=== PATIENT | female | born 1975 | race Caucasian/White ===

== ENCOUNTER 2022-04-04 20:11 | Emergency (ER) | payer OTHER, SELFPAY ==
[2022-04-04 20:19] VITALS: BP 131/84; PULSE 94; RESP 22; TEMP 37.1; O2SAT 100; BMI 35.9
[2022-04-04 20:30] VITALS: BP 128/78; PULSE 84; RESP 16; O2SAT 100
--- NOTE | 2022-04-04 20:39 | CRLHL7_ITS ---
For Patients: As a result of the Century Cures Act, medical imaging exams and procedure reports are released immediately into your electronic medical record. You may view this report before your referring provider. If you have questions, please contact your health care provider. INDICATION: Status post fall COMPARISON: None available. TECHNIQUE: CT examination of the head was performed with 3 mm thick axial and 2 mm thick coronal and sagittal sections without intravenous contrast. Images were obtained from the vertex of the skull through the skull base, and I examined the images with the brain and bone windows. Please note that all CT scans at this facility use dose modulation, iterative reconstruction, and/or weight-based dosing when appropriate to reduce radiation dose to as low as reasonably achievable. FINDINGS: : The brain is normal in appearance for the patient`s age on today`s study, with no sign of mass lesion, mass effect, hemorrhage, or edema. The ventricles and sulci are normal in appearance for the patient`s age. The visualized portions of the orbits are normal in appearance. The visualized portions of the paranasal sinuses and mastoids are clear. The osseous structures are normal in their appearance with no sign of abnormality in the skull base or calvarium. IMPRESSION: No sign of closed head injury. Normal noncontrast CT of the head for the patient`s age. Please note that all CT scans at this facility use dose modulation, iterative reconstruction, and/or weight-based dosing when appropriate to reduce radiation dose to as low as reasonably achievable. Dictated by Corbin Bashir MD @ 04/04/2022 9:31:15 PM (Electronically Signed)
[2022-04-04] MEDS: 0.9 % SODIUM CHLORIDE 1000 ml 1,000 ML IV (21:27)
[2022-04-04] MEDS: ONDANSETRON 2 MG/ML inj 4 MG IVP (21:28)
[2022-04-04 21:30] VITALS: BP 120/80; PULSE 83; RESP 19; O2SAT 100
[2022-04-04 21:40] LABS: Basophils Absolute Auto 0.03 K/uL (0.00-0.30); Basophils Percent Auto 0.4 % (0.0-3.0); Eosinophils Absolute Auto 0.11 K/uL (0.00-0.50); Eosinophils Percent Auto 1.5 % (0.0-7.0); Hematocrit 30.7 % (33.0-51.0); Hemoglobin* 9.1 gm/dL (12.0-16.0); Immature Granulocytes Abs Auto 0.01 K/uL (0.00-0.30); Lymphocytes Absolute Auto 2.19 K/uL (0.90-2.90); Lymphocytes Percent Auto 29.8 % (20-44); Mean Corpuscular HGB Conc 30 gm/dL (32-36); Mean Corpuscular Hemoglobin 24 pg (26-34); Mean Corpuscular Volume 80 fL (80-100); Monocytes Percent Auto 6.1 % (0.0-11.0); Neutrophils Absolute Auto 4.56 K/uL (1.7-7.0); Neutrophils Percent Auto 62.1 % (42.0-72.0); Platelet Count* 287 K/uL (140-440); RDW Coefficient of Variation % 16.8 % (11.5-15.5); Red Blood Count 3.82 m/uL (4.00-5.20); White Blood Count* 7.35 K/uL (4.50-11.00)
[2022-04-04 21:43] LABS: Slide Review Reflex No
[2022-04-04 21:45] LABS: HCG Qualitative* Negative (Negative)
[2022-04-04 21:54] LABS: Albumin* 4.1 g/dL (3.3-5.0)
[2022-04-04 21:55] LABS: Chloride* 106 mmol/L (96-114); Mono Screen* Negative (Negative); Potassium* 3.8 mmol/L (3.6-5.1); Sodium* 139 mmol/L (135-149)
[2022-04-04 21:56] LABS: Appearance Urine Clear (Clear); Bilirubin Urine Negative (Negative); Blood Urine Negative (Negative); Color Urine Yellow (Yellow); Glucose Urine Negative (Negative); Ketones Urine Negative (Negative); Leukocyte Esterase Urine Negative (Negative); Nitrite Urine Negative (Negative); Protein Urine Negative (Negative); Urobilinogen Urine 0.2 (0.2-1.0)
[2022-04-04 21:57] LABS: Alanine Aminotransferase* 19 U/L (4-35); Alkaline Phosphatase* 80 U/L (40-150); Aspartate Amino Transferase* 24 U/L (12-35); Bilirubin Direct* 0.1 mg/dL (0.0-0.5); Bilirubin Total* 0.1 mg/dL (0.1-1.5); Creatinine* 0.6 mg/dL (0.5-1.5); Estimated Glomerular Filt Rate 111 ml/min; Total Protein* 7.1 g/dL (6.0-8.3)
[2022-04-04 21:58] LABS: Blood Urea Nitrogen* 12 mg/dL (5-24); Carbon Dioxide* 27 mmol/L (20-32); Glucose* 104 mg/dL (60-115)
[2022-04-04 21:59] LABS: Calcium* 8.5 mg/dL (8.4-10.6)
[2022-04-04 22:00] VITALS: BP 131/80; PULSE 85; RESP 15; O2SAT 100
[2022-04-04 22:06] LABS: RBC Urine 0-2 (0-2); WBC Urine 0-2 (0-5)
[2022-04-04 22:06] LABS: C Reactive Protein* < 0.5 mg/dL (0.5-1.0)
--- NOTE | 2022-04-04 22:10 | ED_ITS ---
HPI - General Adult General Chief complaint: Nausea/Vomiting Stated complaint: Pain at the base of neck, prev stroke history Time Seen by Provider: 04/04/22 20:31 Source: patient Mode of arrival: ambulatory Limitations: no limitations History of Present Illness HPI narrative: Patient is a 47-year-old female coming in today concerned about possibility of a stroke. Patient states that about a year or so ago she had a hemorrhagic stroke that was unprovoked. Symptoms began with a severe headache, ear fullness, overall weakness and generally not feeling well. She states that she all of a sudden felt all of these things today except for the severe headache. She does complain however of pressure in the back of her head. She states that the biggest issue is that symptoms came on all of a sudden with again the fullness in her ears generally not feeling good from head to toe, feeling weak and tired. On the way here she started having some chills. She states that the fullness in her ears has mostly resolved and that her chills are gone also now that she is under a blanket. She denies blurry vision, dizziness, vertiginous symptoms, changes in her hearing, ringing in her ears. She denies vomiting although she does state that she feels somewhat nauseated. She denies chest pain or abdominal discomfort. No neurologic deficits. No loss of balance. Related Data Home Medications Medication Instructions Recorded Confirmed No Known Home Medications 04/04/22 04/04/22 Allergies Allergy/AdvReac Type Severity Reaction Status Date / Time Sulfa (Sulfonamide Allergy Mild Hives Verified 04/04/22 20:24 Antibiotics) Review of Systems Status of ROS: Reports: 10 or more systems reviewed and unremarkable except as noted in History and below [facility] Social History Smoking Status: Never smoker Do you use any of these nicotine containing products: None Second hand tobacco smoke exposure: No How often do you have a drink containing alcohol: never AUDIT-C Alcohol total score: 0 Non-prescribed substance use: denies use Exam Narrative: Exam Narrative: Well-nourished well-developed patient in no acute distress. Alert and oriented. Answers questions appropriately. Mood and affect are appropriate. Thoughts are goal oriented and rational. No tangential or magical thinking noted. Patient speaks in full sentences without needing to catch their breath. HEENT: Normocephalic atraumatic. Pupils are equally round reactive to light. Extraocular muscles are intact. Conjunctivae are moist without any icterus noted. Moist mucous membranes. Posterior pharynx is normal. Neck is soft without any lymphadenopathy or thyromegaly. No masses are appreciated. TMs are clear bilaterally. Cardiovascular: Heart is regular rate and rhythm S1 and S2 are present without any murmurs. Lungs: Clear to auscultation bilaterally no wheezes rhonchi or rales are appreciated. Patient takes deep breaths without any discomfort. Abdomen: Soft and nontender nondistended with normal bowel sounds. No guarding or rebound. No masses or organomegaly appreciated. Extremities: Bilateral lower extremities are without edema. Normal DP and PT pulses. Skin: Well perfused without any obvious rashes. Strength is 5/5 of the upper and lower extremities. Reflexes are 2+ and symmetric at the knees. Cranial nerves 3-12 are normal. [id number] is normal. There is no nystagmus either horizontally or vertically. Gait is normal. Const: Vital Signs, click to edit/add: Vital Signs - 24 hr 04/04/22 20:19 04/04/22 20:30 Temperature 98.7 F Pulse Rate [Right Pulse Oximeter] 94 84 Respiratory Rate 22 16 Blood Pressure [Le ft Upper Arm] 131/84 128/78 Pulse Oximetry 100 100 Course Course Hospital Course: IV was started and patient received normal saline and Zofran. Head CT was done right away given her history and symptoms and this was normal. Her labs were also unremarkable. She was feeling better after fluids and Zofran. Vital Signs Vital signs: Initial Vital Signs Temperature 98.7 F 04/04/22 20:19 Temperature Source Temporal Artery Scan 04/04/22 20:19 Pulse Rate 94 04/04/22 20:19 Respiratory Rate 04/04/22 20:19 Blood Pressure 131/84 04/04/22 20:19 Blood Pressure Mean 99 04/04/22 20:19 Blood Pressure Position Supine 04/04/22 20:19 Pulse Oximetry 100 04/04/22 20:19 Oxygen Delivery Method 04/04/22 20:19 Vital Signs Temperature 98.7 F 04/04/22 20:19 Pulse Rate 94 04/04/22 20:19 Respiratory Rate 22 07/29/22 20:19 Blood Pressure 131/84 07/29/22 20:19 Pulse Oximetry 100 04/04/22 20:19 Temperature 98.7 F 04/04/22 20:19 Pulse Rate 84 04/04/22 20:30 Respiratory Rate 16 04/04/22 20:30 Blood Pressure 128/78 04/04/22 20:30 Pulse Oximetry 100 04/04/22 20:30 Medical Decision Making MDM Narrative Medical decision making narrative: 47-year-old female generally not feeling well, unclear etiology. No evidence of hemorrhagic stroke today which was the patient's main concern. We discussed monitoring her symptoms over the next few days. We discussed hydration and getting good sleep. And we discussed reasons to return to the ER. Patient and her were agreeable with everything we discussed had no other questions. Medical Records Medical records reviewed: Yes I reviewed the patient's medical records Lab Data Lab results reviewed: Yes I reviewed the patient's lab results Labs: Lab Results 04/04/22 04/04/22 04/04/22 Range/Units 20:45 21:00 21:15 WBC (4.50-11.00) K/uL RBC (4.00-5.20) m/uL Hgb (12.0-16.0) gm/dL Hct (33.0-51.0) % MCV (80-100) fL MCH (26-34) pg MCHC (32-36) gm/dL RDW Coeff of Dominick (11.5-15.5) % Plt Count (140-440) K/uL Neut % (Auto) (42.0-72.0) % Lymph % (Auto) (20-44) % [place] % (Auto) (0.0-11.0) % Eos % (Auto) (0.0-7.0) % Baso % (Auto) (0.0-3.0) % Neut # (Auto) (1.7-7.0) K/uL Lymph # (Auto) (0.90-2.90) K/uL [place] # (Auto) (0.00-0.90) K/UL Eos # (Auto) (0.00-0.50) K/uL Baso # (Auto) (0.00-0.30) K/uL Abs Immat Gran (auto) (0.00-0.30) K/uL Sodium 139 (135-149) mmol/L Potassium 3.8 (3.6-5.1) mmol/L Chloride 106 (96-114) mmol/L Carbon Dioxide 27 (20-32) mmol/L BUN 12 (5-24) mg/dL Creatinine 0.6 (0.5-1.5) mg/dL Estimated Creat Clear 104.30 Estimated GFR 111 ml/min Glucose 104 (60-115) mg/dL Calcium 8.5 (8.4-10.6) mg/dL Total Bilirubin (0.1-1.5) mg/dL Direct Bilirubin (0.0-0.5) mg/dL AST (12-35) U/L ALT (4-35) U/L Alkaline Phosphatase (40-150) U/L C-Reactive Protein (0.5-1.0) mg/dL Total Protein (6.0-8.3) g/dL Albumin (3.3-5.0) g/dL HCG, Qual Negative (Negative) Urine Color Yellow (Yellow) Urine Appearance Clear (Clear) Urine pH 7.0 (5.0-8.5) Ur Specific [place] 1.020 (1.000-1.030) Urine Protein Negative (Negative) Urine Glucose (UA) Negative (Negative) Urine Ketones Negative (Negative) Urine Blood Negative (Negative) Urine Nitrite Negative (Negative) Urine Bilirubin Negative (Negative) Urine Urobilinogen 0.2 (0.2-1.0) Ur Leukocyte Esterase Negative (Negative) Urine RBC 0-2 (0-2) Urine WBC 0-2 (0-5) Urine WBC Clumps None (None) Ur Squamous Epith Cells None (None-Few) Urine Bacteria None (None) SARS-CoV-2 (PCR) Negative SARS-CoV-2 (Negative) Monoscreen (Negative) Influenza Type A (PCR) Negative PCR FLU A (Negative) Influenza Type B (PCR) Negative PCR FLU B (Negative) POC Troponin I (0.01-0.04) ng/ml 04/04/22 04/04/22 04/04/22 Range/Units 21:15 21:15 21:15 WBC 7.35 (4.50-11.00) K/uL RBC 3.82 L (4.00-5.20) m/uL Hgb 9.1 L (12.0-16.0) gm/dL Hct 30.7 L (33.0-51.0) % MCV 80 (80-100) fL MCH 24 L (26-34) pg MCHC 30 L (32-36) gm/dL RDW Coeff of Dominick 16.8 H (11.5-15.5) % Plt Count 287 (140-440) K/uL Neut % (Auto) 62.1 (42.0-72.0) % Lymph % (Auto) 29.8 (20-44) % [place] % (Auto) 6.1 (0.0-11.0) % Eos % (Auto) 1.5 (0.0-7.0) % Baso % (Auto) 0.4 (0.0-3.0) % Neut # (Auto) 4.56 (1.7-7.0) K/uL Lymph # (Auto) 2.19 (0.90-2.90) K/uL [place] # (Auto) 0.40 (0.00-0.90) K/UL Eos # (Auto) 0.11 (0.00-0.50) K/uL Baso # (Auto) 0.03 (0.00-0.30) K/uL Abs Immat Gran (auto) 0.01 (0.00-0.30) K/uL Sodium (135-149) mmol/L Potassium (3.6-5.1) mmol/L Chloride (96-114) mmol/L Carbon Dioxide (20-32) mmol/L BUN (5-24) mg/dL Creatinine (0.5-1.5) mg/dL Estimated Creat Clear Estimated GFR ml/min Glucose (60-115) mg/dL Calcium (8.4-10.6) mg/dL Total Bilirubin 0.1 (0.1-1.5) mg/dL Direct Bilirubin 0.1 (0.0-0.5) mg/dL AST 24 (12-35) U/L ALT 19 (4-35) U/L Alkaline Phosphatase 80 (40-150) U/L C-Reactive Protein < 0.5 L (0.5-1.0) mg/dL Total Protein 7.1 (6.0-8.3) g/dL Albumin 4.1 (3.3-5.0) g/dL HCG, Qual (Negative) Urine Color (Yellow) Urine Appearance (Clear) Urine pH (5.0-8.5) Ur Specific [place] (1.000-1.030) Urine Protein (Negative) Urine Glucose (UA) (Negative) Urine Ketones (Negative) Urine Blood (Negative) Urine Nitrite (Negative) Urine Bilirubin (Negative) Urine Urobilinogen (0.2-1.0) Ur Leukocyte Esterase (Negative) Urine RBC (0-2) Urine WBC (0-5) Urine WBC Clumps (None) Ur Squamous Epith Cells (None-Few) Urine Bacteria (None) SARS-CoV-2 (PCR) (Negative) Monoscreen Negative (Negative) Influenza Type A (PCR) (Negative) Influenza Type B (PCR) (Negative) POC Troponin I 0.00 L (0.01-0.04) ng/ml Imaging Data CT scan - head: My impression: No evidence of hemorrhage Radiologist's impression: FINDINGS: : The brain is normal in appearance for the patient`s age on today`s study, with no sign of mass lesion, mass effect, hemorrhage, or edema. The ventricles and sulci are normal in appearance for the patient`s age. The visualized portions of the orbits are normal in appearance. The visualized portions of the paranasal sinuses and mastoids are clear. The osseous structures are normal in their appearance with no sign of abnormality in the skull base or calvarium. IMPRESSION: No sign of closed head injury. Normal noncontrast CT of the head for the patient`s age. Please note that all CT scans at this facility use dose modulation, iterative reconstruction, and/or weight-based dosing when appropriate to reduce radiation dose to as low as reasonably achievable. Dictated by Corbin Bashir MD @ 04/04/2022 9:31:15 PM ----- ADDENDUM ----- The clinical history is: Stroke 1 year ago, symptoms today are similar: Weakness, chills, nausea, fatigue. I now have the previous CT of the head from 01/18/2021 for comparison. There has been no interval change. There has been no interval change. Discharge Plan Discharge Clinical Impression: Feeling unwell Patient Disposition: Home, Self-Care Condition: Stable Additional Instructions: Make sure to get plenty of rest tonight and stay well hydrated throughout the day. Follow-up with your doctor as needed. Return to the ER if her symptoms worsen or you develop severe headache,vomiting, or dizziness. Prescriptions: No Action No Known Home Medications 0RF Follow Up/Referrals: Nguyễn Graham MD [Primary Care Provider] - Stand Alone Forms: [employer] Info Instructions
[2022-04-04 22:17] LABS: PCR FLU A Negative PCR FLU A (Negative); PCR FLU B Negative PCR FLU B (Negative); SARS PCR* Negative SARS-CoV-2 (Negative)
--- NOTE | 2022-04-04 22:26 | ED.NURSE ---
IVF bolus complete. SL. Patient ambulatory to BR independently. MD at bedside upon return.
[2022-04-04 22:44] LABS: Erythrocyte SedimentationRate* 18 mm/hr (2-20)
== END 2022-04-04 22:58 | disposition home or self-care (01) ==
PROVIDERS: Emergency Provider Family Medicine; PCP Family Medicine
DX: R69 Illness, unspecified (principal)
CPT/HCPCS: 36415; 70450; 80048; 80076; 81001; 84484; 84703; 85025; 85651; 86140; 86308; 87086; 87502; 87635; 93005; 96374; 99284; 99285; J2405; J7030

== ENCOUNTER 2022-09-03 11:41 | Outpatient (CLI) | payer OTHER, SELFPAY ==
[2022-09-03 13:56] LABS: Basophils Absolute Auto 0.02 K/uL (0.00-0.30); Basophils Percent Auto 0.2 % (0.0-3.0); Eosinophils Absolute Auto 0.05 K/uL (0.00-0.50); Eosinophils Percent Auto 0.6 % (0.0-7.0); Hematocrit 31.4 % (33.0-51.0); Hemoglobin* 9.3 gm/dL (12.0-16.0); Immature Granulocytes Abs Auto 0.01 K/uL (0.00-0.30); Immature Granulocytes Pct Auto 0.1 %; Lymphocytes Absolute Auto 1.66 K/uL (0.90-2.90); Lymphocytes Percent Auto 20.7 % (20-44); Mean Corpuscular HGB Conc 30 gm/dL (32-36); Mean Corpuscular Hemoglobin 23 pg (26-34); Mean Corpuscular Volume 78 fL (80-100); Monocytes Percent Auto 6.1 % (0.0-11.0); Neutrophils Percent Auto 72.3 % (42.0-72.0); Platelet Count* 205 K/uL (140-440); RDW Coefficient of Variation % 16.9 % (11.5-15.5); Red Blood Count 4.02 m/uL (4.00-5.20); White Blood Count* 8.02 K/uL (4.50-11.00)
[2022-09-03 14:04] LABS: Chloride* 108 mmol/L (96-114); Slide Review Reflex Yes
[2022-09-03 14:05] LABS: Potassium* 4.6 mmol/L (3.6-5.1); Sodium* 140 mmol/L (135-149)
[2022-09-03 14:07] LABS: Creatinine* 0.6 mg/dL (0.5-1.5); Estimated Glomerular Filt Rate 111 ml/min
[2022-09-03 14:08] LABS: Blood Urea Nitrogen* 12 mg/dL (5-24); Carbon Dioxide* 25 mmol/L (20-32); Glucose* 95 mg/dL (60-115)
[2022-09-03 14:43] LABS: Slide Review Acceptable Review (Acceptable)
== END 2022-09-03 11:42 | disposition home or self-care (01) ==
PROVIDERS: PCP Family Medicine; Visit Provider Family Medicine
DX: I10 Essential (primary) hypertension (principal); D50.9 Iron deficiency anemia, unspecified; R42 Dizziness and giddiness
CPT/HCPCS: 80048; 82728; 84443; 85025

== ENCOUNTER 2022-09-15 14:19 | Outpatient (CLI) | payer OTHER, SELFPAY ==
--- NOTE | 2022-09-15 14:30 | CRLHL7_ITS ---
For Patients: As a result of the Century Cures Act, medical imaging exams and procedure reports are released immediately into your electronic medical record. You may view this report before your referring provider. If you have questions, please contact your health care provider. Indication: Brain fog. History of intracranial hemorrhage. Technique: Multiplanar, multisequence MRI of the brain was performed without intravenous contrast. Comparison: CT head 04/04/2022. Findings: The corpus callosum, optic chiasm, pituitary gland, clivus, brainstem and cerebellum appear intact. The craniocervical junction appears preserved. There is no restricted diffusion. No intracranial hemorrhage. The ventricles are proportionate to the cerebral sulci. The 4th ventricle appears midline. The basal cisterns appear patent. No abnormal extra-axial fluid collection identified. There is no intracranial mass, abnormal mass-effect or midline shift identified. Both globes are preserved. Minimal right maxillary sinus mucosal disease. Impression: No acute intracranial abnormality. Dictated by Thien Murcia MD @ 09/15/2022 3:48:17 PM (Electronically Signed)
--- NOTE | 2022-09-15 14:30 | CRLHL7_ITS ---
For Patients: As a result of the Century Cures Act, medical imaging exams and procedure reports are released immediately into your electronic medical record. You may view this report before your referring provider. If you have questions, please contact your health care provider. Indication: BRAIN FOG, HTN, HX OF BLEED. Technique: 3D [id number] MR angiogram of the [id number] with 3-dimensional MIP projections were submitted. Comparison: No prior studies available for comparison at this institution. Findings: The visualized first and second order intracranial vessels are unremarkable. No occlusion/filling defect or acquired arterial stenosis identified. No aneurysm or vascular malformation seen. Impression: No evidence of proximal arterial occlusion, aneurysm, dissection, or vascular malformation. Dictated by Nguyễn Patel MD @ 09/15/2022 4:20:05 PM (Electronically Signed)
== END 2022-09-15 14:20 | disposition home or self-care (01) ==
PROVIDERS: PCP Family Medicine; Visit Provider Family Medicine
DX: I61.9 Nontraumatic intracerebral hemorrhage, unspecified (principal); R42 Dizziness and giddiness
CPT/HCPCS: 70544; 70551

== ENCOUNTER 2022-10-03 09:24 | Outpatient (CLI) | payer OTHER, SELFPAY | END 2022-10-03 09:25 | disposition home or self-care (01) | LOC: OP CLINIC 09:27 | PROVIDERS: PCP Family Medicine; Visit Provider Internal Medicine | DX: D50.9 Iron deficiency anemia, unspecified (principal); K63.5 Polyp of colon; K57.30 Diverticulosis of large intestine without perforation or abscess without bleeding | CPT/HCPCS: 45380; 88305; J2250; J3010 ==

== ENCOUNTER 2025-05-23 13:00 | Outpatient (RCR) | payer OTHER, SELFPAY | END 2025-07-03 13:24 | disposition home or self-care (01) | PROVIDERS: PCP Family Medicine; Visit Provider Physician Assistant | DX: M25.511 Pain in right shoulder (principal); M75.41 Impingement syndrome of right shoulder; M75.21 Bicipital tendinitis, right shoulder; Z51.89 Encounter for other specified aftercare | CPT/HCPCS: 97110; 97112; 97161 ==